=== PATIENT | male | born 1960 | race Two or more races ===

== ENCOUNTER → 2020-10-07 | Emergency (ER) | payer OTHER ==
[~2020-10-07] VITALS: Ht 165.1 cm; Wt 74.4 kg
[~2020-10-07] MED LIST: FORTAMET500 MG PO
== END | disposition home or self-care (01) ==
LOC: ER 20:04
DX: S30.1XXA Contusion of abdominal wall, initial encounter (principal); S20.211A Contusion of right front wall of thorax, initial encounter; W03.XXXA Other fall on same level due to collision with another person, initial encounter; Y93.89 Activity, other specified; Y92.098 Other place in other non-institutional residence as the place of occurrence of the external cause; Y99.8 Other external cause status